=== PATIENT | male | born 1990 | race Two or more races ===

== ENCOUNTER 2021-07-06 17:51 | Emergency (ER) | payer OTHER ==
[~2021-07-06] VITALS: Ht 172.7 cm; Wt 77.1 kg
[~2021-07-06 17:51] MED LIST: ASA325 M1 PO; LIPITOR40 MG PO; PLAVIX 75MG PO
== END 2021-07-06 21:12 | disposition home or self-care (01) ==
LOC: ER 17:51
DX: I86.1 Scrotal varices (principal)

== ENCOUNTER 2024-08-25 08:17 | Emergency (ER) | payer OTHER ==
[~2024-08-25] VITALS: Ht 180.3 cm; Wt 74.8 kg
[2024-08-25 08:24] VITALS: BP 147/77; O2SAT 100
[2024-08-25] MEDS ORDERED: LEVOFLOXACIN500 MG PO (11:19)
== END 2024-08-25 11:29 | disposition home or self-care (01) ==
LOC: ER 08:17
DX: N50.811 Right testicular pain (principal); N45.1 Epididymitis